=== PATIENT | male | born 1990 | race Two or more races ===

== ENCOUNTER 2022-01-29 09:00 | Emergency (ER) | payer OTHER ==
[2022-01-29 09:41] VITALS: BP 126/80; PULSE 73; RESP 16; TEMP 98.6; BMI 32.7
[2022-01-29] MEDS ORDERED: predniSONE 20 MG TABLET (UD) PO ONE (09:53)
[2022-01-29] MEDS ORDERED: diphenhydrAMINE HCL 25 MG CAPSULE (FP) PO ONE (09:53)
[2022-01-29] MEDS ORDERED: predniSONE 20 MG TABLET (UD) ONE (10:07)
[2022-01-29] MEDS ORDERED: diphenhydrAMINE HCL 50 MG CAPSULE ONE (10:07)
== END 2022-01-29 12:32 | disposition home or self-care (01) ==
LOC: FER 09:00
DX: T78.40XA Allergy, unspecified, initial encounter (principal)
CPT/HCPCS: 99283-25